=== PATIENT | male | born 1930 | race Caucasian/White ===

== ENCOUNTER → 2016-09-06 | Outpatient (CLI) | payer MEDICARE ==
[~2016-09-06] MED LIST: ADVA250A INH; AMIT25 PO; ATEN-102 PO; HYDR-2768 PO; PARO10TA PO; PRIL20CA PO; ROSU20 PO
--- NOTE | 2016-09-11 08:34 | RSPPFT ---
DATE OF PROCEDURE: 09/06/16 COMMENTS: Spirometry shows FVC at 3.3 predicted 4.3, FEV1 of 2.1 predicted 2.6, FEV1/FVC ratio at 64% predicted 61%. Patient has some responsiveness to bronchodilator at the level of the "small airways". Lung volumes are reduced with TLC at 5.0 predicted 7.2. DLCO is 48% of predicted. 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
== END ==
LOC: HRSP 12:45
PROVIDERS: ATTEND Internal Medicine Pulmonary Disease
DX: J44.9 Chronic obstructive pulmonary disease, unspecified (principal)
CPT/HCPCS: 94060; 94620; 94726; 94729

== ENCOUNTER → 2017-04-11 | Outpatient (CLI) | payer MEDICARE ==
--- NOTE | 2017-04-15 13:47 | RSPPFT ---
DATE OF PROCEDURE: 04/11/17 COMMENTS: Spirometry with FVC of 2.8 predicted 4.1, FEV1 of 1.6 predicted 3.1, FEV1/FVC ratio 58% predicted 76%. Post-bronchodilator FEV1 increases to 1.8. Air trapping is present with increased RV/TLC ratio from 38 to 54. DLCO is 32% of predicted. IMPRESSION: On the basis of the above, patient has an obstructive lung defect with responsiveness to acutely inhaled bronchodilator.
== END ==
LOC: HRSP 08:40
PROVIDERS: ATTEND Internal Medicine Rheumatology
DX: J84.9 Interstitial pulmonary disease, unspecified (principal)
CPT/HCPCS: 94060; 94726; 94729